=== PATIENT | female | born 1935 | race Caucasian/White ===

== ENCOUNTER 2018-07-16 14:31 | Inpatient (IN) ==
[2018-07-22] MEDS: Aspirin Enteric Coated 325 MG Tablet PO SCH (20:17)
[2018-07-22] MEDS: *HR* OxyCODONE Immed Rel 5 MG TABLET PO PRN (20:17)
[2018-07-22] MEDS: Acetaminophen 325 MG TABLET PO PRN (23:59)
[2018-07-23 05:30] LABS: Basophils % 0.2 %; Eosinophils # 0.1 K/mcL (0.0-0.6); Hematocrit 27.9 % (35.3-44.9); Hemoglobin 9.1 g/dL (11.5-15.4); Lymphocytes # 1.1 K/mcL (0.6-4.6); Lymphocytes % 22.2 %; Mean Corpuscular HGB Conc 32.6 g/dL (31.6-35.5); Mean Corpuscular Hemoglobin 31.9 pg (28.0-33.3); Mean Corpuscular Volume 97.9 fL (83.0-100.0); Mean Platelet Volume 8.7 fL (9.4-12.4); Monocytes # 0.7 K/mcL (0.0-1.3); Platelet Count 254 K/mcL (140-400); Red Blood Count 2.85 M/mcL (3.82-4.97); Red Cell Distribution Width 13.9 % (11.5-14.5); Segmented Neutrophils % 59.6 %
[2018-07-23 05:42] LABS: BUN/Creatinine Ratio 27 (6-26); Blood Urea Nitrogen 16 mg/dL (8-23); Calcium 7.8 mg/dL (8.6-10.3); Carbon Dioxide 30 mEq/L (23-29); Chloride 98 mEq/L (98-107); Glucose 100 mg/dL (70-105); Osmolality,Calculated 273 (280-300); Sodium 131 mEq/L (136-145); eGFR For Non-African Americans > 60 (> 60)
[2018-07-23] MEDS: *HR* OxyCODONE Immed Rel 5 MG TABLET PO PRN ×2 (06:05→20:20)
[2018-07-23] MEDS: Multivit/Ca/Min/Fe/FA 1 TAB TABLET PO SCH (08:09)
[2018-07-23] MEDS: Cholecalciferol (D-3) 1,000 UNIT TABLET PO SCH (08:09)
[2018-07-23] MEDS: Aspirin Enteric Coated 325 MG Tablet PO SCH ×2 (08:09→20:20)
[2018-07-23] MEDS: LYSINE HCL 500 MG PO SCH (10:05)
[2018-07-23] MEDS: GLUCOSAMINE SULFATE DIPOT CHLR 1000 MG PO SCH (10:05)
--- NOTE | 2018-07-23 12:25 | Internal Med History&Physical ---
Addendum entered and electronically signed by Fausto Chaves MD 07/23/18 12:39: I have personally performed a face to face evaluation on this patient. I have r eviewed and agree with the care plan. History and Exam by me shows: Reviewed patient's history and physical with her. She had left total knee replacement, 6 days ago. This was by Dr. Lyman. She had concerns postoperatively with coronary disease but had a stress test yesterday that was normal. She also had hyponatremia which resolved, over time. She held her Evista and metoprolol before surgery but thinks that both of these have been resumed. She has no known allergies. She is a nonsmoker and nondrinker. Patient has no complaint of chest discomfort, dyspnea, orthopnea, breathing problems, palpitations, nausea or vomiting, constipation or diarrhea, other changes in bowel habits, heartburn, difficulty with urination, kidney problems or kidney stones, fevers chills or sweats, rash or itching, seizures, headache or lightheadedness, heat or cold intolerance, blood problems or anemia, or other new complaints, except as mentioned above. Review of systems is otherwise negative. Examination: (Except as mentioned above): General: In no apparent distress, alert and oriented 3. Head: Atraumatic and normocephalic. Eyes: Extraocular muscles are intact, pupils equal round and reactive to light and accommodation. Sclerae anicteric. Ears: External ears are normal to inspection and hearing is grossly normal. Nose: Patent without lesion noted. Mouth: No intraoral lesions seen. Dentition is unremarkable. Neck: Supple with trachea midline. There is no thyromegaly or adenopathy and carotids are 2+ without bruit heard. Respiratory: No use of accessory muscles. Lungs are clear throughout. Normal airflow. Cardiovascular: Regular rate and rhythm without murmur appreciated. Abdomen: Bowel sounds are normal. No hepatosplenomegaly masses or tenderness. Obese and therefore difficult to palpate deeply. Extremities: No cyanosis clubbing or edema, beyond that expected for total knee replacement. Neurological: A and O 3. Cranial nerves II through XII are intact. No focal deficits and no abnormal movements or postures. Skin: Warm and non-diaphoretic with no lesions noted. Breasts, pelvic and rectal: Not examined. We will empirically treat her with fractionated heparin to prevent DVT. We will continue to monitor low hemoglobin. She may begin her Evista if not already resumed. Original Note: Date of Encounter: 07/23/18 Time of Encounter: 12:23 Assessment and Plan (1) Status post total left knee replacement Current visit: Yes Status: Acute Continue PT and OT. Will follow progress. Follow up with ortho as scheduled. Continue current pain medication. (2) Anemia Current visit: Yes Status: Chronic Hemoglobin 9.1. Stable. Monitor labs. Qualifiers: Anemia type: unspecified type Qualified Code(s): D64.9 - Anemia, unspecified (3) HTN (hypertension) Current visit: Yes Status: Chronic Controlled with current medication. Monitor blood pressure. Qualifiers: Hypertension type: essential hypertension Qualified Code(s): I10 - Essenti al (primary) hypertension (4) Hyponatremia Current visit: No Status: Acute Internal Medicine - H&P: HPI Admitted From: Hospital to Hospital Transfer Plans for Post Hospital Care: Home History of present illness: Ms. Gonzales is a 83 year old female admitted for inpatient rehab status post left total knee replacement. Past medical history includes hypertension, osteoarthritis, and history of breast cancer. Has had left mastectomy. Surgery was performed by Dr. Lyman on to at [facility]. Postop complication was hyponatremia. Patient was placed on fluid restriction and sodium level improved. It is currently 131 today. Patient states pain is controlled with current medication. Denies fever, chills, nausea vomiting or diarrhea. States last bowel movement was this morning. Maintaining appetite. Lives at home alone. Past Med Surg Social Fam HX - Past Medical History Medical history: cancer, osteoporosis Additional medical history: breast CA, colon CA Psychiatric history: no psych history - Past Surgical History Surgical History: colectomy Additional surgical history: L mastectomy, foot surgery (torn tendon in arch) - Social History Smoking Status: Never smoker Smokeless Tobacco Status: No Alcohol use: none Drug use: none - Family History Father Living Status: Hx Family Cardiac Disorders: Yes Mother Living Status: Hx Family Cardiac Disorders: Yes (stroke) Hx Family Neurologic Disorders: Yes (CVA x2) Internal Medicine - H&P: Meds Calcium Carbonate/Vitamin D3 [Calcium 600-Vit D3 800 Tablet] 1 tab PO DAILY 01/02/18 [History] Multivit,Th Iron,Other Min [Therems-M] 1 tab PO DAILY 01/02/18 [History] Raloxifene [Evista] 60 mg PO DAILY 01/02/18 [History] Acetaminophen [Tylenol] 650 mg PO Q6HR PRN #30 tablet 01/05/18 [Rx] Aspirin Enteric Coated [Aspirin EC] 325 mg PO BID 10 Days #20 tablet. 07/15/18 [Rx] Biotin 1 mg PO DAILY 07/15/18 [History] Glucosamine Sulfate Dipot Chlr [Glucosamine] 1,000 mg PO DAILY 07/15/18 [History] Lysine HCl [l-Lysine] 500 mg PO DAILY 07/15/18 [History] Metoprolol [Lopressor] 25 mg PO BID 07/22/18 [History] Allergy/AdvReac Type Severity Reaction Status Date / Time No Known Allergies Allergy Verified 07/15/18 12:00 All Systems PM: A 10-system review of systems was performed and is negative for pertinent findings except as documented above in the HPI. - Constitutional Constitutional: no chills, no fever(s), no night sweats - EENT Eyes: no change in vision, no discharge, no pain, no photophobia Ears: no ear discharge, no ear pain, no tinnitus Nose, mouth and throat: no dysphagia, no nasal discharge, no neck pain, no sore throat - Cardiovascular Cardiovascular ROS IM: no chest pain, no diaphoresis, no dyspnea, no lightheadedness, no palpitations, no syncope - Respiratory Respiratory: no cough, no dyspnea, no wheezing, no excessive phlegm production - Gastrointestinal Gastrointestinal: no abdominal pain, no diarrhea, no hematemesis, no hematochezia, no melena, no nausea, no vomiting - Genitourinary Genitourinary: no change in urinary stream, no dysuria, no flank pain, no hematuria - Musculoskeletal Musculoskeletal ROS IM: no numbness, no tingling - Integumentary Integumentary IM: no rash, no unusual bruising - Neurological Neurological ROS: no confusion, no convulsions, no focal weakness, no numbness, no tingling, no tremor(s) - Hematologic/Lymphatic Hematologic/Lymphatic: no easy bruising - Constitutional Vitals: Temp Pulse Resp BP Pulse Ox 98.9 F 96 16 135/68 96 07/23/18 06:35 07/23/18 08:16 03/05/19 08:16 07/23/18 08:16 07/23/18 08:16 General appearance: Present: cooperative, A&O X 3, pleasant, no acute distress, answers questions appropriately - Head Head exam: Present: atraumatic, normocephalic - Eye Eye exam: Present: PERRL, conjuntiva pink, sclera anicteric Pupils: Present: PERRL - Neck Neck exam general surgery: Present: supple, trachea midline. Absent: lymphadenopathy - Respiratory Respiratory exam: Present: CTAB. Absent: accessory muscle use, rales, rhonchi, wheezes - Cardiovascular Cardiovascular exam: Present: RRR, +S1, +S2. Absent: diastolic murmur, gallop, rubs, systolic murmur - GI/Abdominal GI/Abdominal exam: Present: normal bowel sounds, soft, no peritoneal signs. Absent: distended, tenderness - Extremities Exam Extremities exam: Present: warm, radial pulses palpable and symmetrical. Absent: calf tenderness, cyanotic, pedal edema - Incison Comments: Left knee incision dressing dry and intact with moderate amount of edema to left lower extremity. - Neurological Exam Neurological exam: Present: CN II-XII intact, oriented X3, no focal deficits. Absent: pronater drift, facial droop, speech deficit - Skin Skin exam: Present: dry, intact Internal Med - H&P Results - Labs CBC & Chem 7: 07/23/18 05:20 07/23/18 05:20 Labs: Short CBC 07/23/18 Range/Units 05:20 WBC 5.0 (4.3-11.1) K/mcL Hgb 9.1 L (11.5-15.4) g/dL Hct 27.9 L (35.3-44.9) % Plt Count 254 (140-400) K/mcL Neutrophils # 3.0 (1.6-8.9) K/mcL BMP 07/23/18 05:20 Sodium 131 L Potassium 4.0 Chloride 98 Carbon Dioxide 30 H BUN 16 Creatinine 0.60 Glucose 100 Calcium 7.8 L
[2018-07-23] MEDS: *HR* Heparin 5,000 UNIT/ML VIAL SQ SCH (18:20)
[2018-07-24] MEDS: *HR* Heparin 5,000 UNIT/ML VIAL SQ SCH ×2 (06:11→17:29)
[2018-07-24] MEDS: *HR* OxyCODONE Immed Rel 5 MG TABLET PO PRN ×2 (06:12→20:22)
[2018-07-24] MEDS: Acetaminophen 325 MG TABLET PO PRN (09:11)
[2018-07-24] MEDS: LYSINE HCL 500 MG PO SCH (09:14)
[2018-07-24] MEDS: GLUCOSAMINE SULFATE DIPOT CHLR 1000 MG PO SCH (09:14)
[2018-07-24] MEDS: Cholecalciferol (D-3) 1,000 UNIT TABLET PO SCH (10:26)
[2018-07-24] MEDS: Multivit/Ca/Min/Fe/FA 1 TAB TABLET PO SCH (10:26)
[2018-07-24] MEDS: Aspirin Enteric Coated 325 MG Tablet PO SCH ×2 (10:26→20:22)
--- NOTE | 2018-07-24 11:29 | Internal Med Progress Note ---
Addendum entered and electronically signed by Fausto Chaves MD 07/24/18 13:01: I have personally performed a face to face evaluation on this patient. I have r eviewed and agree with the care plan. History and Exam by me shows: Patient is feeling generally well. She notes that she still has edema around surgical site but this is improved. She has been moving bowels and bladder well without problems. Discussed care with other providers and/or nursing. Patient has no complaint of chest discomfort, dyspnea, orthopnea, palpitations, nausea or vomiting, constipation or diarrhea, other changes in bowel habits, difficulty with urination, rash or itching, or other new complaints, except as mentioned above. Review of systems is otherwise negative. Examination: (Except as mentioned above): General: In no apparent distress. Alert and oriented 3. Nondiaphoretic. Head: Atraumatic and normocephalic. Respiratory: No use of accessory muscles. Lungs are clear throughout. Normal airflow. Cardiovascular: Regular rate and rhythm without murmur appreciated. Abdomen: Bowel sounds are normal. No hepatosplenomegaly mass or tenderness appreciated. Extremities: No cyanosis clubbing or edema. Skin: Warm and non-diaphoretic with no new lesions noted. Original Note: Date of Encounter: 07/24/18 Time of Encounter: 11:27 - Assessment and plan (1) Status post total left knee replacement Current Visit: Yes Status: Acute Assessment and plan: Continue PT and OT. Will follow progress. Continue current pain medication. Follow up with ortho as scheduled. (2) Anemia Current Visit: Yes Status: Chronic Assessment and plan: Stable. Monitor labs. Qualifiers: Anemia type: unspecified type Qualified Code(s): D64.9 - Anemia, unspecified - Time Spent With Patient less than 15 minutes - Subjective Interval history: Participating well with therapy. Ambulating with Walker with therapy. States pain is controlled with current medication. Last bowel movement was yesterday. Maintaining appetite and hydration. Denies any fever, chills, nausea vomiting or diarrhea. Denies shortness of breath or chest pain. - Constitutional Vitals: Temp Pulse Resp BP Pulse Ox 97.9 F 88 16 123/73 95 07/24/18 07:00 07/24/18 07:00 07/24/18 07:00 07/24/18 07:00 07/24/18 07:00 General appearance: Present: cooperative, A&O X 3, pleasant, no acute distress, answers questions appropriately - Head Head exam: Present: atraumatic, normocephalic - Eye Eye exam: Present: PERRL, conjuntiva pink, sclera anicteric Pupils: Present: PERRL - Neck Neck exam general surgery: Present: supple, trachea midline. Absent: lymphadenopathy - Respiratory Respiratory exam: Present: CTAB. Absent: accessory muscle use, rales, rhonchi, wheezes - Cardiovascular Cardiovascular exam: Present: RRR, +S1, +S2. Absent: diastolic murmur, gallop, rubs, systolic murmur - GI/Abdominal GI/Abdominal exam: Present: normal bowel sounds, soft, no peritoneal signs. Absent: distended, tenderness - Extremities Exam Extremities exam: Present: warm, radial pulses palpable and symmetrical. Absent: calf tenderness, cyanotic, pedal edema Additional comments: LLE nonpitting edema - Incison Comments: Dressing dry and intact. Moderate amount of surrounding edema and ecchymosis present. - Neurological Exam Neurological exam: Present: CN II-XII intact, oriented X3, no focal deficits. Absent: pronater drift, facial droop, speech deficit - Skin Skin exam: Present: dry, intact Internal Medicine: Result - Labs CBC & Chem 7: 07/23/18 05:20 07/23/18 05:20 Consult Discharge Plan - Plan Referrals: Justo Cash DO [Primary Care Provider] -
[2018-07-25] MEDS: *HR* Heparin 5,000 UNIT/ML VIAL SQ SCH (05:46)
[2018-07-25] MEDS: GLUCOSAMINE SULFATE DIPOT CHLR 1000 MG PO SCH (07:59)
[2018-07-25] MEDS: LYSINE HCL 500 MG PO SCH (07:59)
[2018-07-25] MEDS: Aspirin Enteric Coated 325 MG Tablet PO SCH (08:00)
[2018-07-25] MEDS: Cholecalciferol (D-3) 1,000 UNIT TABLET PO SCH (08:00)
[2018-07-25] MEDS: Multivit/Ca/Min/Fe/FA 1 TAB TABLET PO SCH (08:01)
--- NOTE | 2018-07-25 09:00 | Discharge Summary ---
Addendum entered and electronically signed by Fausto Chaves MD 07/25/18 10:23: Patient discharged before I could see her. Original Note: Date of Encounter: 07/25/18 Time of Encounter: 08:57 - Discharge Diagnosis (1) Status post total left knee replacement Priority: Primary Status: Acute Comments: Patient had a left total knee replacement. Left knee midline surgical incision appears healthy and intact. No erythema. Slight swelling to left knee. Continuous icing the knees while in bed. Patient is to follow up with her orthopedic surgeon and PCP after discharge. Patient is continue physical therapy through outpatient services. (2) Osteoarthritis of left knee Priority: Secondary Status: Chronic Qualifiers: Osteoarthritis type: unspecified Qualified Code(s): M17.12 - Unilateral primary osteoarthritis, left knee Hospital course: Ms. Gonzales is a 83 year old female admitted for inpatient rehab status post left total knee replacement. Past medical history includes hypertension, osteoarthritis, and history of breast cancer. Has had left mastectomy. Surgery was performed by Dr. Lyman on to at [facility]. Postop complication was hyponatremia. Patient was placed on fluid restriction and sodium level improved. It is currently 131 today. Patient states pain is controlled with current medication. Denies fever, chills, nausea vomiting or diarrhea. States last bowel movement was this morning. Maintaining appetite. Lives at home alone. Patient has been dissipated and physical therapy progressed well. Left knee midline surgical incision appears healthy and intact. Noted slight swelling to left knee and leg. Continues icing in use while in bed. Patient states that current pain medications have been effective. Discharge discussed with: patient Time spent discussing smoking cessation with patient: 3 to 10 minutes - Time Spent with Patient Total time spent providing and/or coordinating discharge services: Time spent: Less than 30 minutes - Discharge Medications Prescriptions: No Action Raloxifene [Evista] 60 mg PO DAILY Calcium Carbonate/Vitamin D3 [Calcium 600-Vit D3 800 Tablet] 1 tab PO DAILY Multivit,Th Iron,Other Min [Therems-M] 1 tab PO DAILY Acetaminophen [Tylenol] 650 mg PO Q6HR PRN #30 tablet PRN Reason: Mild Pain/Fever Lysine HCl [l-Lysine] 500 mg PO DAILY Glucosamine Sulfate Dipot Chlr [Glucosamine] 1,000 mg PO DAILY Biotin 1 mg PO DAILY Metoprolol Tartrate [Lopressor] 25 mg PO BID Home Medications: Calcium Carbonate/Vitamin D3 [Calcium 600-Vit D3 800 Tablet] 1 tab PO DAILY 01/02/18 [History] Multivit,Th Iron,Other Min [Therems-M] 1 tab PO DAILY 01/02/18 [History] Raloxifene [Evista] 60 mg PO DAILY 01/02/18 [History] Acetaminophen [Tylenol] 650 mg PO Q6HR PRN #30 tablet 01/05/18 [Rx] Biotin 1 mg PO DAILY 07/15/18 [History] Glucosamine Sulfate Dipot Chlr [Glucosamine] 1,000 mg PO DAILY 07/15/18 [History] Lysine HCl [l-Lysine] 500 mg PO DAILY 07/15/18 [History] Metoprolol Tartrate [Lopressor] 25 mg PO BID 07/25/18 [History] Allergies/Adverse Reactions: Allergy/AdvReac Type Severity Reaction Status Date / Time No Known Allergies Allergy Verified 07/15/18 12:00 Date of admission: 07/22/18 17:29 Primary care physician: Justo Cash Consults: 07/22/18 18:02 Consult to Occupational Therapy [CONS] Routine Comment: Evaluate, develop and implement POC Reason for Consult: s/p LTK Does patient have active BEDREST order?: No Is patient medically & hemodynamically stable?: Yes Consult to Physical Medicine/Rehab [CONS] Routine Reason for Consult: s/p LTK Call Completed: Yes Consult to Physical Therapy [CONS] Routine Comment: Evaluate, develop and implement POC Reason for Consult: s/p LTK Does patient have active BEDREST order?: No Is patient medically & hemodynamically stable?: Yes Consult to Recreational Therapy [CONS] Routine Comment: Evaluate, develop and implement POC Consult to Ammonia Still Operator [CONS] Routine Reason for SW Consult: discharge planning Discharging clinician: Fausto Chaves - Constitutional Vitals: Temp Pulse Resp BP Pulse Ox 98.1 F 103 16 110/69 98 07/24/18 19:09 07/24/18 19:09 07/24/18 19:09 07/24/18 19:09 07/24/18 19:09 General appearance: Present: cooperative, A&O X 3, pleasant, no acute distress, answers questions appropriately - Head Head exam: Present: atraumatic, normocephalic - Eye Eye exam: Present: PERRL, conjuntiva pink, sclera anicteric Pupils: Present: PERRL - Neck Neck exam general surgery: Present: supple, trachea midline. Absent: lymphadenopathy - Respiratory Respiratory exam: Present: CTAB. Absent: accessory muscle use, rales, rhonchi, wheezes - Cardiovascular Cardiovascular exam: Present: RRR, +S1, +S2. Absent: diastolic murmur, gallop, rubs, systolic murmur - GI/Abdominal GI/Abdominal exam: Present: normal bowel sounds, soft, no peritoneal signs. Absent: distended, tenderness - Extremities Exam Extremities exam: Present: warm, radial pulses palpable and symmetrical. Absent: calf tenderness, cyanotic, pedal edema Additional comments: Left knee remains slightly swollen. Midline incision the left knee appears intact and healthy. - Neurological Exam Neurological exam: Present: CN II-XII intact, oriented X3, no focal deficits. Absent: pronater drift, facial droop, speech deficit - Skin Skin exam: Present: dry, intact - Patient Status Disposition: Home Health Service Condition: Good Functional capacity at discharge: uses cane/walker Overall status at discharge: patient is progressing back to baseline - Discharge Instructions Instructions: Aspirin (By mouth), Laxative, Stool Softeners (By mouth), Oxycodone, Rapid Release (By mouth), Total Knee Replacement (DC) Follow Up With: Daina Chou PAC [Physician Screen Roller] - 07/25/18 10:00 am (also follow up with Daina on 08/02/2018 at 9:15am) Kaiden Lyman MD [Partnered Physician] - 08/14/18 4:15 pm Justo Cash DO [Primary Care Provider] - 08/01/18 10:00 am - Diet and Activity Activity: ambulate only with your walker, as per physical therapy, increase activity as tolerated Diet: advance to your usual diet
--- NOTE | 2018-07-25 09:03 | Physician Discharge Referral ---
Addendum entered and electronically signed by Fausto Chaves MD 07/25/18 10:23: Original Note: Home Health/Hosp Referral Info Transfer to: Home Health Provider in Charge Post Discharge: PCP - Diagnosis (1) Status post total left knee replacement Priority: Primary Status: Acute (2) Osteoarthritis of left knee Priority: Secondary Status: Chronic - Respiratory Orders Smoking Cessation: Smoking cessation has been advised. For more information, call the [place] Tobacco Quit Line at 7-985-NKKE-NOW. - Diet/Nutrition Diet/Nutrition Orders: Regular - Activity Activity Orders: Up ad royce, Walker - Services Needed Following services are medically necessary services: Nursing, Physical Therapy - Transfer Medications Home Medications: Calcium Carbonate/Vitamin D3 [Calcium 600-Vit D3 800 Tablet] 1 tab PO DAILY 01/02/18 [History] Multivit,Th Iron,Other Min [Therems-M] 1 tab PO DAILY 01/02/18 [History] Raloxifene [Evista] 60 mg PO DAILY 01/02/18 [History] Acetaminophen [Tylenol] 650 mg PO Q6HR PRN #30 tablet 01/05/18 [Rx] Biotin 1 mg PO DAILY 07/15/18 [History] Glucosamine Sulfate Dipot Chlr [Glucosamine] 1,000 mg PO DAILY 07/15/18 [History] Lysine HCl [l-Lysine] 500 mg PO DAILY 07/15/18 [History] Metoprolol Tartrate [Lopressor] 25 mg PO BID 07/25/18 [History] Allergies/Adverse Reactions: Allergy/AdvReac Type Severity Reaction Status Date / Time No Known Allergies Allergy Verified 07/15/18 12:00 Certification: Further, I certify that my clinical findings support that this patient is homebound (i.e. absences from home require considerable and taxing effort and are for medical reasons or anabaptism services or infrequently or short duration when for other reasons) because: Homebound Reason: Leaving home requires considerable and taxing effort due to condition Attestation: My signature below is to certify that this patient is under my care and that I, or nurse practitioner, or a physician's dental assistant medical assistant working with me, has a [id number] encounter with this patient.
[2018-07-25 09:08] VITALS: BP 110/58
== END 2018-07-25 10:00 | disposition home health service (06) | DRG 560 ==
LOC: INPGRE 07-22 17:29